=== PATIENT | male | born 1955 | race Caucasian/White ===

== ENCOUNTER 2017-12-22 17:38 | Emergency (ER) | payer BC, OTHER, SELFPAY ==
[2017-12-22 17:39] VITALS: BP 147/85; PULSE 61; RESP 15; TEMP 36.9; O2SAT 98; BMI 29.4
--- NOTE | 2017-12-22 20:02 | ED.VISSUMM ---
- ER Visit Summary Date of Service: 12/22/17 Chief Complaint: Left index finger laceration History of Present Illness: The patient is a 62 M who presents with a laceration to his left index finger that occurred today. Patient states he was getting his bow ready when his finger got caught in the bow. Patient denies any paresthesias or weakness. Patient denies any bony pain. Patient states the bleeding stopped after a few minutes of pressure. Patient describes the pain is dull. Patient thinks his last tetanus was within the last 10 years. Physical Examination: Vital signs are stable. Patient is afebrile. Patient is in no acute distress. Skin is warm dry. There is a 3 cm full-thickness curvilinear laceration over the radial aspect of the proximal phalanx of the left index finger. There are no foreign bodies noted. There is no bony crepitance or step-off. There is full range of motion. Strength is 5/5 in flexion extension of the MP, PIP, and DIP joints of the left index finger. Capillary refill is less than 2 seconds in all digits. There are no sensory deficits noted. The remaining physical exam is within normal limits. Emergency Department Course and Treatment: The wound was cleaned and irrigated with copious amounts normal saline. The wound was anesthetized with 1% plain lidocaine via digital block. The wound was closed with 6 simple interrupted #4-0 nylon sutures under sterile technique. Bacitracin dressing was applied. Patient tolerated procedure well. Patient was instructed to keep the wound clean and dry. Patient was instructed to follow-up with his primary care physician in 7-10 days for wound recheck and suture removal. Patient understood and was agreeable with the plan. All questions were answered. Disposition: Discharged home Impression: Left index finger laceration This note was generated with [employer] dictation software. It may contain incorrect words, spelling, and punctuation that were not noted in review of the chart prior to signing ED Disposition - Plan for ED Patient: Disposition: Home or Assisted Living Chief Complaint: Laceration Diagnosis: Laceration of left index finger w/o foreign body w/o damage to nail Instructions: ED Laceration Ext Sutr Stap Tape Referrals: Donald Trevino MD [Primary Care Provider] -
--- NOTE | 2017-12-22 20:06 | ED.DCSUM_ITS ---
- ER Visit Summary Date of Service: 12/22/17 Chief Complaint: Left index finger laceration History of Present Illness: The patient is a 62 M who presents with a laceration to his left index finger that occurred today. Patient states he was getting his bow ready when his finger got caught in the bow. Patient denies any paresthesias or weakness. Patient denies any bony pain. Patient states the bleeding stopped after a few minutes of pressure. Patient describes the pain is dull. Patient thinks his last tetanus was within the last 10 years. Physical Examination: Vital signs are stable. Patient is afebrile. Patient is in no acute distress. Skin is warm dry. There is a 3 cm full-thickness curvilinear laceration over the radial aspect of the proximal phalanx of the left index finger. There are no foreign bodies noted. There is no bony crepitance or step-off. There is full range of motion. Strength is 5/5 in flexion extension of the MP, PIP, and DIP joints of the left index finger. Capillary refill is less than 2 seconds in all digits. There are no sensory deficits noted. The remaining physical exam is within normal limits. Emergency Department Course and Treatment: The wound was cleaned and irrigated with copious amounts normal saline. The wound was anesthetized with 1% plain lidocaine via digital block. The wound was closed with 6 simple interrupted #4- 0 nylon sutures under sterile technique. Bacitracin dressing was applied. Patient tolerated procedure well. Patient was instructed to keep the wound clean and dry. Patient was instructed to follow-up with his primary care physician in 7-10 days for wound recheck and suture removal. Patient understood and was agreeable with the plan. All questions were answered. Disposition: Discharged home Impression: Left index finger laceration This note was generated with [employer] dictation software. It may contain incorrect words, spelling, and punctuation that were not noted in review of the chart prior to signing ED Disposition - Plan for ED Patient: Disposition: Home or Assisted Living Chief Complaint: Laceration Diagnosis: Laceration of left index finger w/o foreign body w/o damage to nail Instructions: ED Laceration Ext Sutr Stap Tape Referrals: Donald Trevino MD [Primary Care Provider] -
[2017-12-22] MEDS: BACITRACIN 15 GM Tube 1 APPLIC TOPICAL (20:10)
[2017-12-22 20:23] VITALS: RESP 18
== END 2017-12-22 20:24 | disposition home or self-care (01) ==
PROVIDERS: Emergency Provider Emergency Medicine; Family Provider Family Medicine; PCP Family Medicine
DX: S61.211A Laceration without foreign body of left index finger without damage to nail, initial encounter (principal); W26.8XXA Contact with other sharp object(s), not elsewhere classified, initial encounter; Y93.9 Activity, unspecified; Y92.9 Unspecified place or not applicable
CPT/HCPCS: 12002; 99283

== ENCOUNTER 2023-11-14 06:55 | Observation (INO) | payer BC, OTHER, MEDICARE, SELFPAY ==
[2023-11-14] VITALS (16 sets, daily range): BP systolic 115–151; BP diastolic 66–85; PULSE 46–58; RESP 12–19; TEMP 36.3–36.9; O2SAT 93–100; BMI 28.4; BMI 27.9
--- NOTE | 2023-11-14 07:17 | CT_ITS ---
STUDY: CT BRAIN WITHOUT CONTRAST REASON FOR EXAM: Male, 68 years old. Neuro deficit. Stroke alert. RADIATION DOSAGE (If Supplied By Facility): CTDIvol = ( 45 ) mGy, DLP = ( 880 ) mGycm TECHNIQUE: Transaxial CT imaging of the brain was performed without administration of intravenous contrast material. CT scan performed according to ALARA principles. Automated exposure control used during exam. COMPARISON: No relevant prior comparison study available FINDINGS: PARENCHYMA: There is no acute bleed or infarct. There are normal white matter tracts. VENTRICLES: There is no hydrocephalus. MASTOID AIR CELLS AND PARANASAL SINUSES: The visualized paranasal sinuses are clear. The mastoid air cells are clear. BONES: There is no skull fracture. SOFT TISSUES: The visualized soft tissues are within normal limits. CT/STROKE Brain/Head without Cont IMPRESSION: No acute intracranial abnormality. N.B. : The above Results were Read Back by Philipp Moore MD to DO Annmarie, and understanding confirmed on 11/14/2023 07:38:03 (ET). Electronically Signed: Philipp Moore MD at 7:38 EDT ,
--- NOTE | 2023-11-14 07:17 | EKG12_ITS ---
Test Reason : CHEST PAIN Blood Pressure : / mmHG Vent. Rate : 053 BPM Atrial Rate : 053 BPM P-R Int : 160 ms QRS Dur : 116 ms QT Int : 444 ms P-R-T Axes : 036 -05 044 degrees QTc Int : 416 ms Sinus bradycardia Otherwise normal ECG Confirmed by JOURDAN NORWOOD, RADHA ([id number]), newspaper editor DANISHA EAGLE ([id number]) on 11/18/2023 6:51:50 AM Referred By: Confirmed By:RADHA SOLIMAN MD
--- NOTE | 2023-11-14 07:17 | RAD_ITS ---
STUDY: X-RAY CHEST REASON FOR EXAM: Male, 68 years old. Altered mental status TECHNIQUE: Frontal view of the chest COMPARISON: None. FINDINGS: The lungs are clear. There are no pleural effusions. There is no pneumothorax. The heart is normal in size. The visualized osseous structures are within normal limits. RAD/Chest 1 View IMPRESSION: No acute thoracic pathology. Electronically Signed: Philipp Moore MD at 8:40 EDT ,
--- NOTE | 2023-11-14 07:18 | CT_ITS ---
INDICATION: Neuro deficit, acute, stroke suspected EXAMINATION: CTA CAROTIDS AND BRAIN - CTA Head and Neck Stroke W/ Contrast (and W/O if performed) TECHNIQUE: Routine CTA of the head and neck was performed with post processing of the angiographic images for volumetric reconstructions. In addition, images were obtained of the [place]. Nascet criteria using the distal ICAs for comparison were used for evaluation of stenoses. 3D reconstructions were reviewed. A radiation dose optimization technique was used for this scan. IV Contrast dosage and agent: 100 mL [id number] COMPARISON: Noncontrast CT head same day. FINDINGS: --NECK: AORTIC ARCH AND BRANCHES: Normal three-vessel arch. No dissection or ectasia in the study [id number].. RIGHT CCA: No occlusion, significant stenosis or dissection. RIGHT ICA: No occlusion, significant stenosis or dissection. LEFT CCA: No occlusion, significant stenosis or dissection. LEFT ICA: No occlusion, significant stenosis or dissection. RIGHT VERTEBRAL ARTERY: No occlusion, significant stenosis or dissection. LEFT VERTEBRAL ARTERY: No occlusion, significant stenosis or dissection. NECK SOFT TISSUES: Unremarkable. LUNG APICES: Clear. BONES: Mild scattered pansinus mucoperiosteal thickening. --HEAD: --Anterior circulation: ICAs: No significant stenosis at the intracranial/visualized segments. ACAs: No significant stenosis at the visualized segments. ACOM: Present. MCAs: No significant stenosis at the visualized segments. --Posterior circulation: PCOMs: Not definitively seen photocomposition keyboard operator: No significant stenosis at the visualized segments. BASILAR ARTERY: No significant stenosis. VERTEBRAL ARTERIES: No significant stenosis at the intradural/visualized segments. No evidence of intracranial aneurysm or vascular malformation. CT/STROKE CTA Head AND Neck W/Con IMPRESSION: No CT evidence of cervical or proximal intracranial vascular occlusion or focal flow-limiting stenosis. Mild scattered sinus disease. N.B. : The above Results were Read Back by Gil Mccann MD to Shahram Anguiano DO, and understanding confirmed on 11/14/2023 07:44:59 (ET). Electronically Signed: Gil Mccann MD at 7:46 EDT ,
[2023-11-14 07:28] LABS: Absolute Lymphocyte Count 1.42 X10^3/uL (0.83-4.51); Basophil# 0.03 X10^3/uL; Basophil% 0.5 % (0-1); Eosinophil# 0.13 X10^3/uL; Eosinophils% 2.2 % (0-5); Hematocrit 45.6 % (40-54); Hemoglobin 15.7 g/dL (13.0-16.5); Lymphocyte # 1.42 X10^3/ul (0.83-4.51); Lymphocyte % 23.7 % (19-41); Mean Corp Hgb Conc 34.4 g/dL (32-36); Mean Corpuscular Hgb 31.5 pg (27.0-32.0); Mean Corpuscular Volume 91.4 fL (80-94); Mean Platelet Vol. 10.2 fl (6.2-12.0); Monocyte# 0.38 X10^3/uL; Monocyte% 6.4 % (0-10); NRBC Flagged by Analyzer 0 % (0-5); Neutrophil % 66.9 % (47-70); Platelet Count 169 K/mm3 (150-450); RBC Distribution Width SD 39.8 fl (35.1-43.9); Red Blood Count 4.99 M/mm3 (4.6-6.2)
[2023-11-14] MEDS: 0.9% Normal Saline (1000mL) 1,000 ML 100 ML IV (07:37)
[2023-11-14] MEDS: Ondansetron 4 MG/2 ML Vial IV (07:38)
[2023-11-14 07:43] LABS: Prothrombin Time (Protime)PT. 13.5 SECONDS (11.7-14.9)
[2023-11-14 07:44] LABS: Partial Thromboplast Time 27.4 Seconds (24.1-36.2)
[2023-11-14 07:45] LABS: Anion Gap 4 (5-15); BUN 23 mg/dL (7-18); Calcium,Total 9.3 mg/dL (8.5-10.1); Chloride 107 mmol/L (98-107); EST Glomerular Filtration Rate 79 mL/min (>60); Est Glom Filt Rate - Afr Amer 96 mL/min (>60); Estimated Creatinine Clearance 88.27 ml/min; Glucose 157 mg/dL (74-106); Potassium 3.8 mmol/L (3.5-5.1); Sodium Level 138 mmol/L (136-145); Troponin-I HS 9 pg/mL (3.0-78.0)
[2023-11-14 07:50] LABS: Bedside Glucose 147 mg/dL (74-106)
--- NOTE | 2023-11-14 08:16 | EDS_ITS ---
HPI History of Present Illness Chief Complaint: Dizziness Narrative Narrative: Patient is a 68-year-old male with no known significant past medical history who presented to the emergency department chief complaint of dizziness and not feeling right. Patient states that this morning he woke up did his morning routine which included stretches and planks. He states that while he was doing a plank he all of a sudden had a sensation of not feeling right and caused him to collapse to the ground. Patient states that he was able to get PE states that he thought his symptoms would improve however he noted that he had to walk outside as he was very hot and did not feel well. Patient states that despite this he was not feeling better he went inside and his noted that he was very pale and was leaning up against the counter. She states that he walked very gingerly and not like his normal self to the couch she states that he looked like he was having some difficulty with walking. Patient states that this all started around 530 this morning. Patient states he has never had any think this happened in the past. He states that he has been eating and drinking appropriately staying well-hydrated. [facility] Medical History no medical history Home Medications ?Medication ?Instructions ?Recorded ?Last Taken ?Type NK 11/14/23 Unknown History Allergy/AdvReac Type Severity Reaction Status Date / Time No Known Allergies Allergy Verified 11/14/23 06:59 Surgical History no surgical history Social History Smoking Status: Never smoker ROS ROS ED ROS Narrative Constitutional: Complains of dizziness as noted above denies any fevers, chills, headaches, lightheadedness Eyes: Denies change in vision double vision blurry vision Cardiovascular: Denies chest pain or palpitations Respiratory: Denies coughing wheezing shortness of breath Abdomen: Denies abdominal pain nausea vomit diarrhea : Denies any urinary symptoms Neurological: Complains of some difficulty with ambulation as noted above denies numbness weakness, tingling Musculoskeletal: Denies back pain Skin: Denies rashes or lesions EXAM Physical Exam Narrative Exam Narrative: General: Patient lying in bed rest comfortably did not appear to be acute distress Head: Atraumatic, normocephalic Eyes: PERRL bilaterally, EOMI bilateral, no conjunctival injection noted. No vertical or horizontal nystagmus noted on exam Neck: Soft, supple, trach midline Cardiovascular: Regular rate and rhythm no murmurs gallops rubs noted Respiratory: Clear to auscultation bilaterally no rales rhonchi wheeze noted Abdomen: Soft, nondistended, nontender to palpation, bowel sounds present x 4 Extremities: +5/5 strength noted in the bilateral upper and lower extremities, no pedal edema noted exam, radial pulses +2/4 in the bilateral upper extremities Neurological: Patient follow commands knew that he was at [facility] year is 2023. NIH of 0 GCS 15 Skin: Warm, dry, intact Const Vital Signs: 11/14/23 06:56 11/14/23 07:17 11/14/23 07:17 Temperature 97.9 F Temperature Source Temporal Pulse Rate 55 L 58 L Respiratory Rate 18 18 Blood Pressure 138/71 H 151/83 H Blood Pressure Mean 93 105 Pulse Ox 100 100 Oxygen Delivery Method Room Air Room Air Room Air 11/14/23 07:47 11/14/23 08:17 11/14/23 08:30 Temperature Temperature Source Pulse Rate 54 L 49 L 46 L Respiratory Rate 14 14 15 Blood Pressure 124/85 H 119/71 116/74 Blood Pressure Mean 98 87 88 Pulse Ox 95 93 93 Oxygen Delivery Method Room Air Room Air Room Air 11/14/23 09:00 11/14/23 09:10 Temperature 97.3 F L Temperature Source Pulse Rate 53 L 53 L Respiratory Rate 13 16 Blood Pressure 126/69 H 126/69 H Blood Pressure Mean 88 88 Pulse Ox 95 94 Oxygen Delivery Method Room Air MDM MDM MDM Narrative Medical decision making narrative: Patient is a 68-year-old male who presented to the Emergency Department with a chief complaint of dizziness not feeling well and difficulty with walking. Patient will have a workup performed here on the differential diagnose includes but not limited to ischemic stroke, posterior circulation stroke, near syncope/syncope, hypoglycemia, ACS. Once workup is obtained reviewed he will be reevaluated. Patient be given IV fluids. Stroke alert was paged out as last known well was 530 has a difficulty with ambulating dizziness and nausea Patient was vomiting was given Zofran. Patient CBC reviewed was largely unremarkable no evidence of leukocytosis white blood count normal at 6, hemoglobin stable 15.7, platelet count normal at 169. Patient's INR normal at 1, PT of 13.5, sodium normal 138. Patient's potassium normal at 3.8, creatinine normal at 1, troponin normal at 9 with a delta troponin obtained normal at 8. Patient's EKG was reviewed showed sinus bradycardia with a rate of 53 bpm. Patient's glucose was noted be 147. Patient CT head and brain without contrast showed no acute intracranial abnormality. Patient CT angiography of the head and neck reviewed showed no acute evidence of large vessel occlusion. Patient's chest x-ray reviewed and showed no acute cardiopulmonary processes. Patient was evaluated by teleneurologist Dr. Pulido who states that she feels that this is more of a near syncopal/syncopal episode. After they were off the line the patient did become nauseous and vomited again and states that he does not feel right. At this point time do believe the patient will warrant admission to the hospital further evaluation management of his symptoms. Patient case was discussed with hospitalist Dr. Swain who will accept the patient for admission. Patient was notified and is agreeable with this plan all question concerns were answered at bedside. Lab Data Labs: Laboratory Results - last 24 hr 11/14/23 11/14/23 11/14/23 07:20 07:30 08:52 WBC 6.0 RBC 4.99 Hgb 15.7 Hct 45.6 MCV 91.4 MCH 31.5 MCHC 34.4 RDW Std Deviation 39.8 RDW Coeff of Erick 12.0 Plt Count 169 MPV 10.2 Immature Gran % (Auto) 0.300 Neut % (Auto) 66.9 Lymph % (Auto) 23.7 Bartholomew % (Auto) 6.4 Eos % (Auto) 2.2 Baso % (Auto) 0.5 Absolute Neuts (auto) 4.0 Absolute Lymphs (auto) 1.42 Nucleated RBC % 0 PT 13.5 INR 1.0 APTT 27.4 Sodium 138 Potassium 3.8 Chloride 107 Carbon Dioxide 27.0 Anion Gap 4 L BUN 23 H Creatinine 1.00 Estim Creat Clear Calc 88.27 Est GFR (MDRD) Af Amer 96 Est GFR (MDRD) Non-Af 79 BUN/Creatinine Ratio 23.0 H Glucose 157 H Calcium 9.3 Troponin I High Sens 9 8 POC Glucose 147 H Radiography Diagnostic Testing: Clinical Impression(s) from Imaging Studies Brain CT 11/14/23 07:17 IMPRESSION: No acute intracranial abnormality. N.B. : The above Results were Read Back by Philipp Moore MD to DO Annmarie and understanding confirmed on 11/14/2023 07:38:03 (ET). Electronically Signed: Philipp Moore MD at 7:38 EDT , ADDENDUM: 11/14/23 0745 IMPRESSION: No acute intracranial abnormality. N.B. : The above Results were Read Back by Philipp Moore MD to DO Annmarie, and understanding confirmed on 11/14/2023 07:38:03 (ET). Electronically Signed: Philipp Moore MD at 7:38 EDT , Chest X-Ray 11/14/23 07:17 IMPRESSION: No acute thoracic pathology. Electronically Signed: Philipp Moore MD at 8:40 EDT , Head/Neck CTA 11/14/23 07:18 IMPRESSION: No CT evidence of cervical or proximal intracranial vascular occlusion or focal flow-limiting stenosis. Mild scattered sinus disease. N.B. : The above Results were Read Back by Gil Mccann MD to Shahram Anguiano DO and understanding confirmed on 11/14/2023 07:44:59 (ET). Electronically Signed: Gil Mccann MD at 7:46 EDT , ADDENDUM: 11/14/23 0753 IMPRESSION: No CT evidence of cervical or proximal intracranial vascular occlusion or focal flow-limiting stenosis. Mild scattered sinus disease. N.B. : The above Results were Read Back by Gil Mccann MD to Shahram Anguiano DO, and understanding confirmed on 11/14/2023 07:44:59 (ET). Electronically Signed: Gil Mccann MD at 7:46 EDT , Discharge Plan Triage Chief Complaint: Dizziness ED Provider: Shahram Anguiano Dx/Rx/DC Orders Clinical Impression: Dizziness, Nausea & vomiting Prescriptions: No Action NK Primary Care Provider: Donald Trevino Referrals: Donald Trevino MD [Primary Care Provider] - Print Language: [place]ralt[place]
--- NOTE | 2023-11-14 08:50 | MRI_ITS ---
HISTORY: ataxia. TECHNIQUE: Multiplanar and multisequence MR images of the brain were obtained without contrast. 294 images. COMPARISON: CT same day. FINDINGS: BRAIN PARENCHYMA: Very mild foci of increased T2 FLAIR signal in the cerebral white matter. No abnormal focus of restricted diffusion. No acute intracranial hemorrhage identified. CSF SPACES: Cerebral ventricles, cortical sulci, and other extra-axial CSF spaces within normal limits in size for age. No significant midline shift or other mass effect.No extra-axial fluid collection. VASCULAR SYSTEM: Major intracranial flow voids are maintained. PARANASAL SINUSES AND MASTOID AIR CELLS: No significant air fluid levels. Artifact from oral cavity hardware. ORBITS: Symmetric contents. MRI/Brain without Contrast IMPRESSION: No evidence for acute infarct. Very mild chronic small vessel ischemic gliosis. Electronically Signed: June Foster MD at 10:55 EDT ,
--- NOTE | 2023-11-14 08:51 | HP.PCM.HOS_ITS ---
HPI - General General Date of Admission: 11/14/23 Date of Service: 11/14/23 Chief Complaint: Dizziness HPI Narrative JHON DONALD, is a 68 M who presents with dizziness. Patient states started on the morning of his presentation after waking up. Patient did experience vertiginous symptoms as well as lightheadedness and apparently fell to the ground. The EMS squad was called and patient was brought to the emergency department upon arrival to the emergency department patient did have nausea and vomited x 1. His NIH score was noted to be 0 patient did not receive TNK as a result. There was a suspicion of possible posterior circulation CVA necessitating patient being admitted for subsequent workup in the hospital [facility] Medical History no medical history Home Medications ?Medication ?Instructions ?Recorded ?Last Taken ?Type NK 11/14/23 Unknown History Allergy/AdvReac Type Severity Reaction Status Date / Time No Known Allergies Allergy Verified 11/14/23 06:59 Surgical History no surgical history Social History Smoking Status: Never smoker ROS ROS Narrative GENERAL: denies fever, chills, night sweats, weight loss, anorexia HEENT: denies headache, sinus congestion, or drainage, dysphagia RESPIRATORY: denies cough, sputum production, shortness of breath, dyspnea on exertion CARDIAC: denies chest pain, palpitations, orthopnea, PND GASTROINTESTINAL: denies abdominal pain, nausea, vomiting, melena, GENITOURINARY: denies dysuria, urgency, frequency, heamaturia EXTREMITY: denies swelling MUSCULOSKELETAL: denies current joint pain or tenderness NEUROLOGIC: denies focal numbness, weakness, tingling HEMATOLOGIC: denies easy bruising and/or hemorrhage INTEGUMENT: denies rashes PSYCHIATRIC: denies suicidal or homicidal ideation Vital Signs Vital Signs Vital Signs: 11/14/23 06:56 11/14/23 07:17 11/14/23 07:17 Temperature 97.9 F Temperature Source Temporal Pulse Rate 55 L 58 L Respiratory Rate 18 18 Blood Pressure 138/71 H 151/83 H Blood Pressure Mean 93 105 Pulse Ox 100 100 Oxygen Delivery Method Room Air Room Air Room Air 11/14/23 07:47 11/14/23 08:17 11/14/23 08:30 Temperature Temperature Source Pulse Rate 54 L 49 L 46 L Respiratory Rate 14 14 15 Blood Pressure 124/85 H 119/71 116/74 Blood Pressure Mean 98 87 88 Pulse Ox 95 93 93 Oxygen Delivery Method Room Air Room Air Room Air Weight Weight: 97.8 kg Body Mass Index (BMI) 28.4 Physical Exam Narrative GENERAL: cooperative HEENT: Atraumatic; normocephalic EYES; Anicteric, Normal Conjunctiva NECK; supple, normal thyroid, RESPIRATORY: Diminished to auscultation CARDIOVASCULAR: Regular S1 S2, GI: soft, normoactive bowel sounds, : No Renal angle tenderness; EXTREMITIES: No edema, no clubbing, MUSCULOSKELETAL: no muscle wasting NEURO: Awake; no lateralizing signs. SKIN: No Rash PSYCH; Flat affect Results Lab / Micro Data 11/14/23 07:20 11/14/23 07:20 Labs: Laboratory Results - last 24 hr 11/14/23 07:20: WBC 6.0, RBC 4.99, Hgb 15.7, Hct 45.6, MCV 91.4, MCH 31.5, MCHC 34.4, RDW Std Deviation 39.8, RDW Coeff of Erick 12.0, Plt Count 169, MPV 10.2, Immature Gran % (Auto) 0.300, Neut % (Auto) 66.9, Lymph % (Auto) 23.7, [place] % (Auto) 6.4, Eos % (Auto) 2.2, Baso % (Auto) 0.5, Absolute Neuts (auto) 4.0, Absolute Lymphs (auto) 1.42, Nucleated RBC % 0, PT 13.5, INR 1.0, APTT 27.4, Sodium 138, Potassium 3.8, Chloride 107, Carbon Dioxide 27.0, Anion Gap 4 L, BUN 23 H, Creatinine 1.00, Estim Creat Clear Calc 88.27, Est GFR (MDRD) Af Amer 96, Est GFR (MDRD) Non-Af 79, BUN/Creatinine Ratio 23.0 H, Glucose 157 H, Calcium 9.3, Troponin I High Sens 9 11/14/23 07:30: POC Glucose 147 H Imaging Radiology Impression Brain CT 11/14/23 07:17 IMPRESSION: No acute intracranial abnormality. N.B. : The above Results were Read Back by Philipp Moore MD to DO Annmarie, and understanding confirmed on 11/14/2023 07:38:03 (ET). Electronically Signed: Philipp Moore MD at 7:38 EDT , ADDENDUM: 11/14/23 0745 IMPRESSION: No acute intracranial abnormality. N.B. : The above Results were Read Back by Philipp Moore MD to DO Annmarie, and understanding confirmed on 11/14/2023 07:38:03 (ET). Electronically Signed: Philipp Moore MD at 7:38 EDT , Chest X-Ray 11/14/23 07:17 IMPRESSION: No acute thoracic pathology. Electronically Signed: Philipp Moore MD at 8:40 EDT , Head/Neck CTA 11/14/23 07:18 IMPRESSION: No CT evidence of cervical or proximal intracranial vascular occlusion or focal flow-limiting stenosis. Mild scattered sinus disease. N.B. : The above Results were Read Back by Gil Mccann MD to Shahram Anguiano DO, and understanding confirmed on 11/14/2023 07:44:59 (ET). Electronically Signed: Gil Mccann MD at 7:46 EDT , ADDENDUM: 11/14/23 0753 IMPRESSION: No CT evidence of cervical or proximal intracranial vascular occlusion or focal flow-limiting stenosis. Mild scattered sinus disease. N.B. : The above Results were Read Back by Gil Mccann MD to Shahram Anguiano DO, and understanding confirmed on 11/14/2023 07:44:59 (ET). Electronically Signed: Gil Mccann MD at 7:46 EDT , Assessment & Plan Assessment/Plan (1) Dizziness: PLAN: Plan Patient is a 68-year-old gentleman presenting with acute dizziness. Nausea and vomiting 1. Acute vertigo Differential diagnoses include posterior circulation CVA versus BPPV. Patient has been admitted to a monitored bed. As part of his management ordered serial NIH evaluation, 2D echo, MRI of the brain without contrast, lipid panel and hemoglobin A1c. If patient MRI comes back negative we will obtain consultation with neurology otherwise we will stick with the PT OT ordered as part of patient's evaluation 2. Hyperglycemia ? Patient is not a known diabetic, hemoglobin A1c has been ordered as part of his evaluation 3. DVT prophylaxis ? 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
[2023-11-14 09:30] LABS: Troponin-I HS 8 pg/mL (3.0-78.0)
[2023-11-14 11:01] LABS: Hemoglobin A1c 5.2 % (3.8-5.6)
[2023-11-14] MEDS: Meclizine 12.5 MG Tablet PO (11:47)
[2023-11-14] MEDS: Metoclopramide 10 MG/2 ML Vial 5 MG IV (13:27)
--- NOTE | 2023-11-14 14:35 | ECHOCS_ITS ---
Version 2 Reason For Study: TIA/CVA Procedure This was a 2D Doppler, Color Flow transthoracic echocardiogram. Contrast injection was performed. Exam performed portable in patient room. Left Ventricle Normal LV size. Left ventricular systolic function is normal. The left ventricular ejection fraction is 55 %. No regional wall motion abnormalities noted. Right Ventricle Normal RV size. Normal systolic function. Atria Normal left atrium. Normal right atrium. Intact atrial septum. Bubble contrast study negative for right to left interatrial shunt. Mitral Valve Normal mitral valve. Tricuspid Valve Normal tricuspid valve. Mild (1+) tricuspid valve insufficiency. Pulmonary artery systolic pressure is 33 mmHg. Aortic Valve Normal aortic valve. Trisinus/trileaflet aortic valve. Pulmonic Valve Normal pulmonic valve. Great Vessels Normal aortic root. The pulmonary artery is normal size. Normal inferior vena cava. Pericardium/Pleural No pericardial effusion. Medication Performed a rapid injection of agitated mix of 9 cc saline and 1cc air to assess for atrial septal defect. Diluted definity 3ml given slow IV push to enhance endocardial definition. MMode/2D Measurements & Calculations LVIDd: 5.7 cm IVSd: 0.99 cm Ao root diam: 3.5 cm LVIDs: 4.0 cm LVPWd: 0.94 cm RVDd: 4.1 cm FS: 29.6 % LAV(MOD-bp): 63.4 ml LVAd ap4: 39.1 cm2 SV(MOD-sp4): 77.9 ml LAV(MOD-bp) Indexed: 28.8 ml/m2 LVLd ap4: 8.7 cm LAV(MOD-sp2): 82.1 ml EDV(MOD-sp4): 142.7 ml LAV(MOD-sp4): 47.7 ml EDV(sp4-el): 149.8 ml LVAs ap4: 23.0 cm2 LVLs ap4: 7.1 cm ESV(MOD-sp4): 64.8 ml ESV(sp4-el): 63.7 ml EF(MOD-sp4): 54.6 % EF(sp4-el): 57.5 % SV(sp4-el): 86.1 ml LA A4 area: 17.1 cm2 LA dimension(2D): 4.6 cm RA A4 area: 16.9 cm2 TAPSE: 3.1 cm Time Measurements MV dec time: 0.20 sec Doppler Measurements & Calculations MV E max flaco: 67.6 cm/sec Lat Peak E' Flaco: 9.9 cm/sec Med Peak E' Flaco: 8.2 cm/sec MV A max flaco: 62.1 cm/sec E/E' lat: 6.9 E/E' med: 8.3 MV E/A: 1.1 MV dec slope: 350.5 cm/sec2 Ao V2 max: 119.6 cm/sec LV V1 max: 89.7 cm/sec Ao max P.7 mmHg LV V1 max P.2 mmHg Ao V2 mean: 83.0 cm/sec Ao mean P.2 mmHg Ao V2 VTI: 29.6 cm PA V2 max: 113.5 cm/sec TR max flaco: 264.2 cm/sec TR max P.9 mmHg ECHO/Echo Complete W/ Contrast Interpretation Summary Normal LV size. Left ventricular systolic function is normal. The left ventricular ejection fraction is 55 %. Bubble contrast study negative for right to left interatrial shunt. Contrast injection was performed. Ordering Physician: Arun Swain Referring Physician: Donald Trevino Performed By: Janessa Victor RDCS, RVT
[2023-11-14] MEDS: Aspirin 81 MG TAB.CHEW PO (15:19)
[2023-11-14] MEDS: Enoxaparin 40 MG/0.4 ML Syringe SC (15:19)
[2023-11-14] MEDS: KCL 20MEQ in 0.9% NS 20 MEQ/1,000 ML IV.SOLN. 150 MEQ IV ×2 (15:19→21:43)
[2023-11-14] MEDS: Atorvastatin Calcium 80 MG Tablet PO (21:42)
[2023-11-15 02:00] VITALS: BP 114/73; PULSE 56; RESP 16; TEMP 36.6; O2SAT 94
[2023-11-15] MEDS: KCL 20MEQ in 0.9% NS 20 MEQ/1,000 ML IV.SOLN. 150 MEQ IV (04:31)
[2023-11-15 06:00] VITALS: BP 123/73; PULSE 55; RESP 16; TEMP 36.6; O2SAT 97
[2023-11-15 06:15] LABS: Absolute Lymphocyte Count 1.62 X10^3/uL (0.83-4.51); Absolute Neutrophil Count 4.2 X10^3/uL (2.0-7.7); Basophil# 0.04 X10^3/uL; Basophil% 0.6 % (0-1); Eosinophil# 0.12 X10^3/uL; Eosinophils% 1.8 % (0-5); Hematocrit 40.7 % (40-54); Hemoglobin 13.7 g/dL (13.0-16.5); Lymphocyte # 1.62 X10^3/ul (0.83-4.51); Lymphocyte % 24.8 % (19-41); Mean Corp Hgb Conc 33.7 g/dL (32-36); Mean Corpuscular Hgb 31.6 pg (27.0-32.0); Mean Platelet Vol. 10.4 fl (6.2-12.0); Monocyte# 0.55 X10^3/uL; Monocyte% 8.4 % (0-10); NRBC Flagged by Analyzer 0 % (0-5); Neutrophil # 4.18 X10^3/uL (2.7-7.7); Neutrophil % 64.1 % (47-70); Platelet Count 159 K/mm3 (150-450); RBC Distribution Width CV 12.3 % (11.6-14.6); RBC Distribution Width SD 42.5 fl (35.1-43.9); Red Blood Count 4.33 M/mm3 (4.6-6.2); White Blood Count 6.5 K/mm3 (4.4-11.0)
[2023-11-15 08:24] VITALS: BMI 27.9
[2023-11-15] MEDS: Enoxaparin 40 MG/0.4 ML Syringe SC (09:13)
[2023-11-15 09:43] VITALS: BP 121/73; PULSE 54; RESP 18; TEMP 36.2; O2SAT 96
--- NOTE | 2023-11-15 10:02 | PCM.DC.SUM ---
Providers Date of Admission: 11/14/23 Date of Discharge: 11/15/23 Primary Care Physician: Dr. Donald Trevino MD Reason For Visit: DIZZINESS Diagnosis Discharge Diagnosis (1) Dizziness: Status: Acute Code(s): R42 - Dizziness and giddiness Plan Patient is a 68-year-old gentleman presenting with acute dizziness. Nausea and vomiting 1. Acute vertigo Differential diagnoses include posterior circulation CVA versus BPPV. Patient has been admitted to a monitored bed. As part of his management ordered serial NIH evaluation, 2D echo, MRI of the brain without contrast, lipid panel and hemoglobin A1c. If patient MRI comes back negative we will obtain consultation with neurology otherwise we will stick with the PT OT ordered as part of patient's evaluation ; ? Patient MRI came back negative for acute CVA. Patient's symptoms did resolve. It was felt patient symptoms was related to BPPV was seen and evaluated by PT ?2D echo results as below Normal LV size. Left ventricular systolic function is normal. The left ventricular ejection fraction is 55 %. Bubble contrast study negative for right to left interatrial shunt. Contrast injection was performed. 2. Hyperglycemia ? Patient is not a known diabetic, hemoglobin A1c has been ordered as part of his evaluation ? Hemoglobin A1c came back at 5.2 not consistent with diabetes 3. DVT prophylaxis ? 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,decision-making process, review of diagnostic data, adjustment of management, discussion with other providers, nursing nursing and ancillary staff involved in patient's care documentation,32 minutes Medications at Discharge Home Medications meclizine 25 mg tablet 25 mg PO TID #20 tabs 11/15/23 Physical Exam Narrative GENERAL: cooperative HEENT: Atraumatic; normocephalic EYES; Anicteric, Normal Conjunctiva NECK; supple, normal thyroid, RESPIRATORY: Diminished to auscultation CARDIOVASCULAR: Regular S1 S2, GI: soft, normoactive bowel sounds, : No Renal angle tenderness; EXTREMITIES: No edema, no clubbing, MUSCULOSKELETAL: no muscle wasting NEURO: Awake; no lateralizing signs. SKIN: No Rash PSYCH; Flat affect Weight / BMI Weight Weight: 96 kg Body Mass Index (BMI) 27.9 ABG / Lab / Microbiology Data 11/15/23 05:54 11/15/23 05:54 Laboratory: Laboratory Results - last 24 hr 11/14/23 07:20: Hemoglobin A1c 5.2 11/15/23 05:54: WBC 6.5, RBC 4.33 L, Hgb 13.7, Hct 40.7, MCV 94.0, MCH 31.6, MCHC 33.7, RDW Std Deviation 42.5, RDW Coeff of Erick 12.3, Plt Count 159, MPV 10.4, Immature Gran % (Auto) 0.300, Neut % (Auto) 64.1, Lymph % (Auto) 24.8, [place] % (Auto) 8.4, Eos % (Auto) 1.8, Baso % (Auto) 0.6, Absolute Neuts (auto) 4.2, Absolute Lymphs (auto) 1.62, Nucleated RBC % 0 Radiography Diagnostic Testing: Radiology Impression Brain MRI 11/14/23 08:50 IMPRESSION: No evidence for acute infarct. Very mild chronic small vessel ischemic gliosis. Electronically Signed: June Foster MD at 10:55 EDT Reading Location ID and State: [facility] / MD Tel , Service support , D/C Instructions Discharge Diet: No restrictions Discharge Activity: Return to Normal Activity Call your doctor if you observe: Fever of 101 or Higher, Shortness of breath, Fainting spells and Chest pain Meaningful Use Info Meaningful Use Meaningful Use Diagnoses (Choose all that apply): None applicable Ischemic Stroke Statin Dosing Therapy Reference: STATIN DOSE THERAPY REFERENCE: * Patients > 75 years receive moderate or high dose statin therapy. * Patients 75 years or YOUNGER should receive HIGH intensity statin dose unless contraindicated. You will be required to document reason for non-treatment if statin daily dose does not meet guidelines. HIGH DOSE STATIN THERAPY DAILY Atorvastatin > than or = to 40 mg Rosuvastatin > than or = to 20 mg Amlodipine + Atorvastatin > than or = to 2.5/40 mg Ezetimibe + Simvastatin 10/80 mg Simvastatin 80mg Discharge Plan Admission Admit Date/Time: 11/14/23 08:46 Attending Provider: Arun Swain Primary Care Provider: Donald Trevino Discharge Orders/Prescriptions Prescriptions: New meclizine 25 mg tablet 25 mg PO TID Qty: 20 0RF Referrals / Follow Up: Donald Trevino MD [Primary Care Provider] - Within 1 Week Disposition Disposition (needs filled in before D/C Order can be placed): Home, Self Care Charges/Coding Visit Charges Inpatient E&M: 82880 Disch Hosp >30min
[2023-11-15] MEDS: 0.9% Saline Lock 10 ML Syringe IV (10:25)
[2023-11-15 10:44] LABS: Anion Gap 3 (5-15); BUN 15 mg/dL (7-18); BUN/Creat Ratio 15.1 RATIO (10-20); Calcium,Total 8.6 mg/dL (8.5-10.1); Chloride 112 mmol/L (98-107); Cholesterol 139 mg/dL (200); EST Glomerular Filtration Rate 80 mL/min (>60); Est Glom Filt Rate - Afr Amer 96 mL/min (>60); Estimated Creatinine Clearance 87.54 ml/min; Glucose 96 mg/dL (74-106); High Density Lipoprotein 34 mg/dL; Magnesium 2.2 mg/dL (1.6-2.6); Phosphorus 2.6 mg/dL (2.5-4.9); Potassium 4.5 mmol/L (3.5-5.1); Sodium Level 139 mmol/L (136-145); Triglycerides 140 mg/dL; Very Low Density Lipoprotein 28 mg/dL (5-40)
[2023-11-15 11:01] VITALS: O2SAT 93
--- NOTE | 2023-11-15 15:15 | CHAPLAIN ---
Type of Pastoral Visit _x__ Initial Visit ___ Follow-up Visit ___ On-call Visit ___ General Patient Visit ___ Spiritual Assessment ___ Family Conference ___ Bereavement ___ Rapid Response ___ Code Blue ___ Other (describe below) Pastoral Care Referral From _x__ Patient ___ Family ___ Nurse ___ Physician ___ Comic Artist ___ Canvas Cutter Hand ___ Other (describe below) Sacrament/Intervention ___ Active listening ___ Anointing ___ Scientology ___ Bereavement ___ Communion ___ Marcela exploration ___ ___ Life review ___ Prayer ___ Reconciliation ___ Sacrament of Sick _x__ Supportive presence ___ Wedding ___ Other (describe below) Pastoral Comments patient is resting quietly in bed; spouse is with him; pt states that he is doing fine and has no concerns at this time; both say thank you for asking
[2023-11-15 15:40] VITALS: BP 126/70; PULSE 55; RESP 16; TEMP 36.7; O2SAT 96
--- NOTE | 2023-11-15 15:54 | CASEMGMT ---
Patient has order for discharge. ISAIAS CM in to discuss needs at discharge, at bedside. Patient states he received exercises from therapy for vestibular therapy to complete at home. ISAIAS WATTS instructed patient if he would like outpatient vestibular therapy to follow up with PCP for prescription, patient voiced understanding. Patient denied needs or help at discharge. Patient had no further questions or concerns.
[2023-11-15 16:14] VITALS: BMI 27.9
== END 2023-11-15 15:49 | disposition home or self-care (01) ==
LOC: ED 10:21 → PCU 13:47
PROVIDERS: Admitting Provider Internal Medicine; Emergency Provider Emergency Medicine; PCP Family Medicine; Visit Provider Internal Medicine
DX: R42 Dizziness and giddiness (principal); R11.2 Nausea with vomiting, unspecified; R00.1 Bradycardia, unspecified; R26.2 Difficulty in walking, not elsewhere classified; R73.9 Hyperglycemia, unspecified; R53.1 Weakness; I07.1 Rheumatic tricuspid insufficiency
CPT/HCPCS: 36415; 70450; 70496; 70498; 70551; 71045; 80048; 80061; 82962; 83036; 83735; 84100; 84484; 85025; 85610; 85730; 93005; 93306; 94762; 96361; 96372; 96374; 96375; 97802; 99221; 99252; 99284; J7030; Q9957; Q9967; A4216; C8929; G0378; G0463; J2405